=== PATIENT | female | born 1955 | race Caucasian/White ===

== ENCOUNTER → 2017-08-07 | Outpatient (CLI) | payer BC ==
[~2017-08-07] MED LIST: GADOBENATE DIMEGLUMINE 20 ML IV ONE
== END | disposition home or self-care (01) ==
LOC: RAH 08:50
PROVIDERS: ATTEND Internal Medicine Hematology & Oncology
DX: R41.3 Other amnesia (principal)
CPT/HCPCS: 70553; A9577

== ENCOUNTER 2021-05-03 12:15 | Observation (INO) | payer BC ==
[~2021-05-03] VITALS: Ht 157.5 cm; Wt 76.9 kg
[2021-05-03 13:13] VITALS: BP 152/74
[2021-05-03] MEDS ORDERED: REGADENOSON 0.4 MG/5 ML PF SYG IVP SCH (15:30)
[2021-05-03 16:00] VITALS: BP 141/66
[2021-05-03 19:52] VITALS: BP 133/57
[2021-05-03] MEDS ORDERED: OMEP40CA21 PO (20:37)
[2021-05-03] MEDS ORDERED: HYDR12.54 PO (20:37)
[2021-05-03] MEDS ORDERED: AMLO-257 PO (20:37)
[2021-05-03] MEDS ORDERED: CORTSOL OT (20:37)
[2021-05-03] MEDS ORDERED: NATE60TA8 PO (20:37)
[2021-05-03] MEDS ORDERED: LABE100T5 PO (20:37)
[2021-05-03 23:13] VITALS: BP 132/66
[2021-05-04 03:48] VITALS: BP 129/59
[2021-05-04 08:00] VITALS: BP 134/68
== END 2021-05-04 13:00 | disposition home or self-care (01) ==
LOC: EDH 12:15 → INTOOBSV 12:16 → 3BH 12:16
PROVIDERS: ADMIT Internal Medicine Hematology & Oncology; ATTEND Internal Medicine Hematology & Oncology
DX: R07.89 Other chest pain (principal); E11.9 Type 2 diabetes mellitus without complications; I11.9 Hypertensive heart disease without heart failure; I49.3 Ventricular premature depolarization; Z85.3 Personal history of malignant neoplasm of breast; Z85.41 Personal history of malignant neoplasm of cervix uteri; Z85.44 Personal history of malignant neoplasm of other female genital organs; Z86.718 Personal history of other venous thrombosis and embolism; Z90.710 Acquired absence of both cervix and uterus; Z92.21 Personal history of antineoplastic chemotherapy; Z92.3 Personal history of irradiation; Z95.828 Presence of other vascular implants and grafts; Z79.899 Other long term (current) drug therapy; Z98.890 Other specified postprocedural states; Z98.51 Tubal ligation status; Z98.891 History of uterine scar from previous surgery
CPT/HCPCS: 36415; 78452; 82550 ×3; 82948 ×3; 83874 ×3; 84484 ×3; 93017; A9500 ×2; G0378 ×24; J2785; 96374

== ENCOUNTER → 2021-07-08 | Outpatient (CLI) | payer BC ==
[~2021-07-08] MED LIST changes: +AMLO-257 PO; +CORTSOL OT; -GADOBENATE DIMEGLUMINE 20 ML IV ONE; +HYDR12.54 PO; +LABE100T5 PO; +NATE60TA8 PO; +OMEP40CA21 PO
== END | disposition home or self-care (01) ==
LOC: RAH 12:37
PROVIDERS: ATTEND Otolaryngology Plastic Surgery within the Head & Neck
DX: H60.92 Unspecified otitis externa, left ear (principal)
CPT/HCPCS: 70480